=== PATIENT | female | born 1955 | race Caucasian/White ===

== ENCOUNTER 2017-03-11 13:32 | Emergency (ER) | payer OTHER ==
[2017-03-11 13:47] VITALS: RESP 18; TEMP 98.2
--- NOTE | 2017-03-11 14:10 | CPEKG ---
Heart Rate: 75 RR Interval: 800 P-R Interval: 164 QRSD Interval: 92 QT Interval: 388 QTC Interval: 434 P [place]: 79 QRS [place]: 30 T Wave [place]: 77 EKG Severity - ABNORMAL ECG - EKG Impression: SINUS RHYTHM EKG Impression: LEFT ATRIAL ABNORMALITY EKG Impression: BORDERLINE R WAVE PROGRESSION, ANTERIOR LEADS EKG Impression: BORDERLINE T ABNORMALITIES, ANT-LAT LEADS Electronically Signed By: Meghan Chiu 11-Mar-2017 21:08:50
[2017-03-11 14:31] LABS: % IMMATURE GRANULYOCYTES 0.2 % (0.0-1.1); ABSOLUTE IMMATURE GRANULOCYTES 0.02 10^3/uL (0.00-0.10); ADD DIFF? NO; ADD MORPH? NO; ADD SCAN? NO; ATYPICAL LYMPHOCYTE FLAG 10 (0-99); FRAGMENT RBC FLAG 0 (0-99); HEMATOCRIT 42.1 % (38.0-47.0); LEFT SHIFT FLG 0 (0-99); LIPEMIA HEMOLYSIS FLAG 80 (0-99); MEAN CELL HEMOGLOBIN 32.3 pg (27.9-34.1); MEAN CELL HEMOGLOBIN CONCENTR. 33.3 g/dL (32.4-36.7); MEAN PLATELET VOLUME 11.6 fL (8.7-11.7); PLATELET CLUMPS FLAG 0 (0-99); PLATELET COUNT 269 10^3/uL (150-400); RED BLOOD CELL COUNT 4.34 10^6/uL (4.18-5.33)
[2017-03-11 14:33] LABS: COLOR YELLOW; LEUKOCYTE ESTERASE,URINE TRACE (NEGATIVE); NITRITE,URINE NEGATIVE (NEGATIVE)
[2017-03-11 14:38] LABS: BACTERIA 4+ /hpf (NONE SEEN); MUCUS 2+ /lpf (NONE-1+); RBC,URINE NONE SEEN /hpf (0-3)
--- NOTE | 2017-03-11 14:44 | EDPHY ---
H & P Stated Complaint: SOB, Dizzy, BACK PAIN, HPI/ROS: CHIEF COMPLAINT: RIGHT FLANK PAIN HISTORY OF PRESENT ILLNESS: This is a 61-year-old female with history of chronic neck pain and a liver abscess that was treated with antibiotics 2 years ago. She presents today complaining of right flank pain that has been present for the past 2 days. She notices difficulty starting her urinary stream, urgency, and is voiding only small amounts. She has had temperatures around 100 and states that her temperature usually runs around 96. In addition, she notes that she feels somewhat short of breath. She attributes this to the fact that taking a deep breath exacerbates her right-sided flank pain. She has also noticed some dizziness. She describes it as both a lightheadedness and occasionally a sensation that the room is spinning. This is intermittent and might last up to 1/2 an hour. She is not currently having that sensation. She reports that she has persistently low blood pressure and sometimes feels lightheaded when she changes positions too quickly. Her current dizziness is not related to change in position. REVIEW OF SYSTEMS: A ten point review of systems was performed and is negative with the exception of the items mentioned in the HPI. Chronic neck pain that is unchanged. She is planning cervical fusion this summer. No new weakness or numbness. No loss of bowel or bladder control. No change in gait. Recently she has noticed easy bruising. Source: Patient Exam Limitations: No limitations - Personal History Current Tetanus/Diphtheria Vaccine: Yes Current Tetanus Diphtheria and Acellular Pertussis (TDAP): Yes Tetanus Vaccine Date: within afew years - Medical/Surgical History Hx Asthma: No Hx Chronic Respiratory Disease: No Hx Diabetes: No Hx Cardiac Disease: No Hx Renal Disease: No Hx Cirrhosis: No Hx Alcoholism: No Hx HIV/AIDS: No Hx Splenectomy or Spleen Trauma: No Other PMH: 1. Liver abscess treated with antibiotics 2 years ago. 2. Chronic neck pain that has been treated with oral opiates, residing me, and injections. She is planning cervical fusion. 3. Hearing impaired. 4. Rotator cuff repair. 5. Breast implants - Social History Smoking Status: Never smoked Additional Social History: She is not currently working and was previously on disability related to her medical problems[place] She does not use tobacco products. She drinks 2 glasses of wine daily. - Physical Exam Exam: General Appearance: Alert. Vital signs reviewed. Eyes: Pupils equal and round, no conjunctival injection, no discharge. Anicteric. ENT, Mouth: Mucous membranes are moist, no oropharyngeal erythema or edema. Neck: No lymphadenopathy, supple. Respiratory: Lungs are clear to auscultation; no wheezes, rales, or rhonchi. Cardiovascular: Regular rate and rhythm; no murmur, rub, or gallop. Gastrointestinal: Abdomen is soft and nontender, no masses or organomegaly, bowel sounds normal. Skin: Warm and dry, no rashes on exposed skin, normal color. Back: Nontender to palpation over the thoracolumbar spine. Right CVA tenderness. Extremities: No lower extremity edema, no calf tenderness or swelling. Neurological: Alert and oriented. Moving all four extremities easily and equally. MEHUL. EOMI. Hard of hearing to spoken voice. Facial expression symmetric. Tongue midline. 5/5 strength in major motor groups. Sensation intact to light touch. Psychiatric: Normal affect. Constitutional: Initial Vital Signs Temperature (C) 36.8 C 03/11/17 13:44 Heart Rate 86 03/11/17 13:44 Respiratory Rate 18 03/11/17 13:44 Blood Pressure 116/71 03/11/17 13:44 O2 Sat (%) 96 03/11/17 13:44 O2 Delivery Mode Room Air Allergies/Adverse Reactions: No Known Allergies Allergy (Verified 10/02/16 08:51) Home Medications: Medication Instructions Recorded Escitalopram Oxalate [Lexapro] 20 mg PO DAILY 02/06/15 Estrogen,Con/M-Progest Acet 1 each PO DAILY 02/06/15 [Prempro 0.3 mg-1.5 mg Tablet] Levothyroxine [Synthroid 75 mcg 75 mcg PO DAILY06 02/06/15 (*)] Zolpidem Tartrate [Ambien 5MG (*)] 2.5 mg PO HS 02/06/15 Hydrocodon-Acetaminophen 5-325 03/11/17 Medical Decision Making ED Course/Re-evaluation: 61-year-old female with right flank/low back pain that has been present for 3 days. She also has urinary symptoms--urgency and hesitancy. She has subjective fever. Initial urinalysis was positive for epithelial cells but also showed leukocyte esterase and bacteriuria. I was concerned that this was not a clean catch. A 2nd, clean-catch urine, is entirely normal. There are no red blood cells in her urine. The nature of her pain is not suggestive of kidney stones and the fact that she does not have hematuria, making this less likely to be kidney stones. She tells me that her primary care physician told her a week or 2 ago that he thought she might have a urinary tract infection. At that time she had no symptoms. She has not had antibiotics. There is still concern that this could be UTI/pyelonephritis. D-dimer is negative. I do not think that this is pulmonary embolus. She does not have cough or fever in the emergency department. I do not think that she has a pneumonia. I do not suspect an acute coronary syndrome. She is not experiencing chest pain, based upon my interview. Her pain is really in the right flank and low back region. She did have a troponin drawn and this is normal. Patient was re-evaluated at 4:15 p.m.. She continues with right flank pain. She was given oxycodone but has not had relief with this medicine at home. Remains unclear exactly what is causing her pain. She does have a history of a liver abscess in the past. Will obtain CT scan of the abdomen/pelvis. Reassessed the patient at 18:18. Discussed imaging results. CT shows constipation, possible signs of enteritis (she is not having diarrhea). No liver abscess. She states she feels some relief from the Percocet, but has only decreased from 10/10 pain to 8/10 pain. She understands that the etiology of her pain has not been discovered. She feels able to return home. She does not have a surgical abdomen and I do not recommend further ED evaluation at this time. Discussed future symptoms that should prompt immediate re-evaluation including fever, vomiting, diarrhea, changes in urine, or uncontrollable pain. Differential Diagnosis: Flank pain including but not limited to musculoskeletal causes, kidney stone, pyelonephritis, shingles, PE, pneumonia, and intra-abdominal causes such as diverticulitis and appendicitis. - Data Points Laboratory Results: Laboratory Results 03/11/17 14:20 03/11/17 14:20 Medications Given: Discontinued Medications Acetaminophen (Tylenol) 650 mg PO EDNOW ONE Stop: 03/11/17 15:30 Last Admin: 03/11/17 15:37 Dose: Not Given Oxycodone/Acetaminophen (Percocet 5/325) 2 tab PO EDNOW ONE Stop: 03/11/17 15:42 Last Admin: 03/11/17 15:41 Dose: 2 tab Departure - Departure Disposition: Home, Routine, Self-Care Clinical Impression: Flank pain Condition: Good Instructions: Flank Pain (ED) Additional Instructions: 1. Call Dr. Bob on Monday to see if there is any availability earlier than your appointment on Monday. 2. Continue your home pain medications as needed for pain. 3. Return to the ED for fever, chills, vomiting, worsening pain, shortness of breath, or other changes in or worsening of condition. Referrals: Alexis Bob MD [Primary Care Provider] - As per Instructions Report Scribed for: Yaz Murcia Report Scribed by: Ashlyn Hallman Date of Report: 03/11/17 Time of Report: 18:22 Physician Review and Approval Statement: 03/15/17 09:57 Portions of this chart were entered by a manager medical. I personally performed the HPI, PE, MDM. I have reviewed the chart and agree with the documentation.
[2017-03-11 14:48] LABS: ANION GAP 11 mEq/L (8-16); CALCIUM 9.6 mg/dL (8.5-10.4); CARBON DIOXIDE 24 mEq/l (22-31); CHLORIDE 106 mEq/L (97-110); CREATININE 0.6 mg/dL (0.6-1.0); GLOMERULAR FILTRATION RATE > 60; GLUCOSE 124 mg/dL (70-100); POTASSIUM 4.2 mEq/L (3.5-5.2); SODIUM 141 mEq/L (134-144)
[2017-03-11 14:59] LABS: TROPONIN I < 0.012 ng/mL (0-0.034)
[2017-03-11] MEDS ORDERED: ACETAMINOPHEN 325 MG TAB PO ONE (15:29)
[2017-03-11] MEDS ORDERED: OXYCODONE/APAP 5/325 TAB ONE (15:39)
[2017-03-11] MEDS ORDERED: OXYCODONE/APAP 5/325 TAB PO ONE (15:41)
[2017-03-11 15:54] LABS: COLOR YELLOW; LEUKOCYTE ESTERASE,URINE NEGATIVE (NEGATIVE); NITRITE,URINE NEGATIVE (NEGATIVE)
[2017-03-11] MEDS ORDERED: IOPAMIDOL (ISOVUE-300) 100 ML BTL ONE (16:53)
[2017-03-11 18:39] VITALS: BP 130/68; PULSE 58; O2SAT 97
== END 2017-03-11 18:39 | disposition home or self-care (01) ==
DX: R10.9 Unspecified abdominal pain (principal)
CPT/HCPCS: Q9967

== ENCOUNTER 2017-05-08 14:06 | Outpatient (CLI) | payer OTHER ==
[2017-05-08] MEDS ORDERED: NALOXONE HCL 0.4 MG/ML INJ ONE (15:34)
[2017-05-08] MEDS ORDERED: FLUMAZENIL 0.5 MG/5 ML MDV IVP ONE (15:34)
[2017-05-08] MEDS ORDERED: fentaNYL 100 MCG/2 ML INJ ONE (15:34)
[2017-05-08] MEDS ORDERED: MIDAZOLAM 2 MG/2 ML VIAL ONE (15:34)
== END 2017-05-08 17:20 | disposition home health service (06) ==
LOC: FIMAGING 14:06
PROVIDERS: ATTEND Internal Medicine
PROC: BR30ZZZ Magnetic Resonance Imaging (MRI) of Cervical Spine (ICD-10-PCS; principal; 2017-05-08 16:35)
DX: M48.02 Spinal stenosis, cervical region (principal); M54.2 Cervicalgia; F40.240 Claustrophobia
CPT/HCPCS: J2250; J2310; J3010

== ENCOUNTER → 2018-03-20 | Outpatient (CLI) | payer OTHER | LOC: FIMAGING 15:16 | DX: N92.4 Excessive bleeding in the premenopausal period (principal); N85.00 Endometrial hyperplasia, unspecified; Z79.890 Hormone replacement therapy ==